=== PATIENT | male | born 1995 ===

== ENCOUNTER 2022-11-13 10:11 | Outpatient (CLI) | payer OTHER | END 2022-11-13 10:20 | disposition home or self-care (01) | LOC: RAD 10:11 | DX: M99.01 Segmental and somatic dysfunction of cervical region (principal); M99.02 Segmental and somatic dysfunction of thoracic region; M99.03 Segmental and somatic dysfunction of lumbar region ==

== ENCOUNTER 2024-06-29 05:32 | Day surgery (SDC) | payer OTHER ==
[~2024-06-29 05:32] MED LIST: TRUVADA 100 MG1 EACH
[2024-06-29] MEDS ORDERED: HEMOSTATIC MATRIX 1 KIT KIT TOP ONE ×2 (07:06→07:30)
[2024-06-29] MEDS ORDERED: DIBUCAINE 30 GM TUBE ONE (07:07)
[2024-06-29] MEDS ORDERED: BUPIVACAINE HCL/MPF 0.5% 30ML VIAL ONE (07:07)
[2024-06-29] MEDS ORDERED: CEFTRIAXONE SODIUM 2,000 MG VIAL ONE (07:07)
[2024-06-29] MEDS ORDERED: LIDOCAINE HCL 1%/EPINEPHRINE 20ML VIAL IJ ONE ×2 (07:07→07:30)
[2024-06-29] MEDS ORDERED: POVIDONE-IODINE 118 ML BOTT TOP ONE ×2 (07:07→07:30)
[2024-06-29] MEDS ORDERED: METRONIDAZOLE/SODIUM CHLORIDE 500 MG/100 ML PIGGYBACK IV ONE ×2 (07:08→07:30)
[2024-06-29] MEDS ORDERED: DIBUCAINE 30 GM TUBE RECTAL ONE (07:30)
[2024-06-29] MEDS ORDERED: BUPIVACAINE HCL 30 ML VIAL IJ ONE (07:30)
[2024-06-29] MEDS ORDERED: CEFTRIAXONE SODIUM 2,000 MG VIAL IV ONE (07:30)
[2024-06-29] MEDS ORDERED: INTESTINEX680 M1 PO (09:01)
[2024-06-29] MEDS ORDERED: CELECOXIB200 MG PO (09:01)
[2024-06-29] MEDS ORDERED: TRAM1TAB98 PO (09:01)
[2024-06-29] MEDS ORDERED: NEURONTIN300 MG PO (09:01)
== END 2024-06-29 10:20 | disposition home or self-care (01) ==
LOC: CIR.AMB 05:32
PROVIDERS: ATTEND Surgery
DX: K60.0 Acute anal fissure (principal); K62.5 Hemorrhage of anus and rectum; K62.89 Other specified diseases of anus and rectum